=== PATIENT | female | born 1970 | race Caucasian/White ===

== ENCOUNTER → 2018-03-14 | Outpatient (CLI) | payer OTHER ==
[~2018-03-14] MED LIST: ACET500 PO; CIPRSO OS; CYCL10 PO; HYDACE5 PO; IBUP600 PO; VARE1 PO
== END ==
LOC: LAB 10:20 → LAB SHORT 10:20
DX: R30.0 Dysuria (principal)
CPT/HCPCS: 87077; 87086; 87186

== ENCOUNTER 2018-03-16 07:07 | Emergency (ER) | payer OTHER ==
[~2018-03-16] VITALS: Ht 165.1 cm; Wt 71.7 kg
[2018-03-16 07:45] LABS: BASOPHILS ABSOLUTE AUTO 0.04 K/mm3 (0.00-0.23); BASOPHILS PERCENT AUTO 1 % (0-2); EOSINOPHILS ABSOLUTE AUTO 0.24 K/mm3 (0.00-0.68); EOSINOPHILS PERCENT AUTO 4 % (0-6); Hematocrit 37.5 % (33.0-51.0); Hemoglobin 12.8 g/dL (11.5-16.0); IMMATURE GRAN ABSOLUTE AUTO 0.01 K/mm3 (0.00-0.10); IMMATURE GRAN PERCENT AUTO 0 % (0-1); LYMPHOCYTES ABSOLUTE AUTO 1.77 K/mm3 (0.84-5.20); LYMPHOCYTES PERCENT AUTO 31 % (21-46); MONOCYTES ABSOLUTE AUTO 0.38 K/mm3 (0.16-1.47); MONOCYTES PERCENT AUTO 7 % (4-13); Mean Corpuscular HGB 34.2 pg (26.0-34.0); Mean Corpuscular HGB Conc 34.1 g/dL (31.5-36.5); Mean Corpuscular Volume 100 fL (80-100); Mean Platelet Volume 10.2 fL (9.1-12.4); NEUTROPHILS ABSOLUTE AUTO 3.33 K/mm3 (1.96-9.15); NEUTROPHILS PERCENT AUTO 58 % (41-73); Platelet Count 264 K/mm3 (150-400); RDW Coefficient Variation 11.7 % (11.7-14.2); RDW Standard Deviation 42.5 fL (35.1-46.3); Red Blood Cell Count 3.74 M/mm3 (3.80-5.20); White Blood Cell Count 5.77 K/mm3 (4.00-11.30)
[2018-03-16 08:03] LABS: Alanine Aminotransfer (ALT/SGP 22 U/L (12-78); Albumin, Blood 3.9 g/dL (3.4-5.0); Albumin/Globulin Ratio 1.1 (0.8-1.8); Alk Phos 110 U/L (50-136); Anion Gap 7 mmol/L (6-16); Aspartate Aminotrans (AST/SGOT 20 U/L (12-37); Bilirubin, Total 0.4 mg/dL (0.1-1.0); Blood Urea Nitrogen 6 mg/dL (8-24); Bun/Creatinine Ratio 10.3 (12.0-20.0); CO2, Blood 26 mmol/L (21-32); Calcium, Blood 8.7 mg/dL (8.5-10.1); Chloride, Blood 108 mmol/L (98-108); Creatinine, Blood 0.58 mg/dL (0.40-1.00); Free Thyroxine 0.81 ng/dL (0.70-1.60); Globulin, Blood 3.6 g/dL (2.2-4.0); Glomerular Filtration Rate >60 (60-); Glucose, Blood 108 mg/dL (70-99); Sodium, Blood 141 mmol/L (136-145); Total Protein, Blood 7.5 g/dL (6.4-8.2)
== END 2018-03-16 08:30 | disposition home or self-care (01) ==
LOC: ER 07:07
PROVIDERS: Emergency Medicine
DX: R00.2 Palpitations (principal); N39.0 Urinary tract infection, site not specified; Z79.899 Other long term (current) drug therapy; F17.200 Nicotine dependence, unspecified, uncomplicated
CPT/HCPCS: 36415; 80053; 81000; 84439; 84443; 85025; 93005; 93010; 96360; 99285-25; J7030

== ENCOUNTER → 2018-09-29 | Outpatient (CLI) | payer OTHER ==
[2018-09-29 12:11] LABS: BASOPHILS ABSOLUTE AUTO 0.02 K/mm3 (0.00-0.23); BASOPHILS PERCENT AUTO 0 % (0-2); EOSINOPHILS ABSOLUTE AUTO 0.13 K/mm3 (0.00-0.68); EOSINOPHILS PERCENT AUTO 2 % (0-6); Hematocrit 42.5 % (33.0-51.0); Hemoglobin 14.9 g/dL (11.5-16.0); IMMATURE GRAN ABSOLUTE AUTO 0.02 K/mm3 (0.00-0.10); IMMATURE GRAN PERCENT AUTO 0 % (0-1); LYMPHOCYTES PERCENT AUTO 28 % (21-46); MONOCYTES ABSOLUTE AUTO 0.46 K/mm3 (0.16-1.47); MONOCYTES PERCENT AUTO 8 % (4-13); Mean Corpuscular HGB 33.3 pg (26.0-34.0); Mean Corpuscular HGB Conc 35.1 g/dL (31.5-36.5); Mean Corpuscular Volume 95 fL (80-100); Mean Platelet Volume 10.7 fL (9.1-12.4); NEUTROPHILS PERCENT AUTO 60 % (41-73); Platelet Count 229 K/mm3 (150-400); RDW Coefficient Variation 11.3 % (11.7-14.2); RDW Standard Deviation 39.4 fL (35.1-46.3); Red Blood Cell Count 4.47 M/mm3 (3.80-5.20); White Blood Cell Count 5.63 K/mm3 (4.00-11.30)
[2018-09-29 12:17] LABS: Source, Urine Clean Catch
[2018-09-29 12:31] LABS: Bacteria Not Seen /hpf; Red Blood Cells, Urine Not Seen /hpf (0-2); Squamous Epithelial Cells Few /hpf (Few); White Blood Cells, Urine Not Seen /hpf (0-5)
[2018-09-29 12:56] LABS: Alanine Aminotransfer (ALT/SGP 24 U/L (12-78); Albumin, Blood 4.1 g/dL (3.4-5.0); Albumin/Globulin Ratio 1.1 (0.8-1.8); Alk Phos 86 U/L (40-126); Anion Gap 10 mmol/L (6-16); Aspartate Aminotrans (AST/SGOT 18 U/L (12-37); Bilirubin, Total 1.3 mg/dL (0.1-1.0); Blood Urea Nitrogen 9 mg/dL (8-24); Bun/Creatinine Ratio 13.6 (12.0-20.0); CO2, Blood 27 mmol/L (21-32); Calcium, Blood 9.7 mg/dL (8.5-10.1); Chloride, Blood 103 mmol/L (98-108); Creatinine, Blood 0.66 mg/dL (0.40-1.00); Globulin, Blood 3.7 g/dL (2.2-4.0); Glomerular Filtration Rate >60 (60-); Glucose, Blood 104 mg/dL (70-99); Potassium, Blood 4.5 mmol/L (3.5-5.5); Sodium, Blood 140 mmol/L (136-145); Total Protein, Blood 7.8 g/dL (6.4-8.2)
== END | disposition home or self-care (01) ==
LOC: LAB EV 12:07 → LAB SHORT 12:07
PROVIDERS: Physician Assistant
DX: R35.0 Frequency of micturition (principal)
CPT/HCPCS: 80053; 81015; 85025

== ENCOUNTER → 2019-02-12 | Outpatient (CLI) | payer OTHER ==
[2019-02-12 16:08] LABS: BASOPHILS ABSOLUTE AUTO 0.03 K/mm3 (0.00-0.23); BASOPHILS PERCENT AUTO 1 % (0-2); EOSINOPHILS ABSOLUTE AUTO 0.14 K/mm3 (0.00-0.68); EOSINOPHILS PERCENT AUTO 3 % (0-6); Hematocrit 36.2 % (33.0-51.0); Hemoglobin 12.7 g/dL (11.5-16.0); IMMATURE GRAN ABSOLUTE AUTO 0.01 K/mm3 (0.00-0.10); IMMATURE GRAN PERCENT AUTO 0 % (0-1); LYMPHOCYTES PERCENT AUTO 31 % (21-46); MONOCYTES ABSOLUTE AUTO 0.38 K/mm3 (0.16-1.47); MONOCYTES PERCENT AUTO 8 % (4-13); Mean Corpuscular HGB 33.4 pg (26.0-34.0); Mean Corpuscular HGB Conc 35.1 g/dL (31.5-36.5); Mean Corpuscular Volume 95 fL (80-100); Mean Platelet Volume 10.4 fL (9.1-12.4); NEUTROPHILS ABSOLUTE AUTO 2.74 K/mm3 (1.96-9.15); NEUTROPHILS PERCENT AUTO 57 % (41-73); Platelet Count 242 K/mm3 (150-400); RDW Coefficient Variation 11.2 % (11.7-14.2); RDW Standard Deviation 38.8 fL (35.1-46.3)
== END | disposition home or self-care (01) ==
LOC: LAB SHORT 16:04 → LAB EV 16:04
PROVIDERS: Physician Assistant
DX: N92.0 Excessive and frequent menstruation with regular cycle (principal)
CPT/HCPCS: 85025

== ENCOUNTER → 2019-03-21 | Outpatient (CLI) | payer OTHER ==
[2019-03-22 09:39] LABS: Candida species (DNA Probe) Negative (NEGATIVE); G. vaginalis (DNA Probe) Positive (NEGATIVE); T. vaginalis (DNA Probe) Negative (NEGATIVE)
[2019-03-23 17:06] LABS: HPV 16 Negative (Negative); HPV 18 Negative (Negative); HPV OTHER HR TYPES Negative (Negative)
== END | disposition home or self-care (01) ==
LOC: LAB 16:08 → LAB SHORT 16:08
PROVIDERS: Obstetrics & Gynecology
DX: Z01.419 Encounter for gynecological examination (general) (routine) without abnormal findings (principal); N76.0 Acute vaginitis
CPT/HCPCS: 87480; 87510; 87624; 87660; G0123

== ENCOUNTER → 2019-09-22 | Outpatient (CLI) | payer OTHER | END | disposition home or self-care (01) | LOC: LAB SHORT 12:48 → LAB EV 12:48 | DX: R30.0 Dysuria (principal); R30.9 Painful micturition, unspecified | CPT/HCPCS: 87086 ==

== ENCOUNTER → 2020-09-12 | Outpatient (CLI) | payer OTHER ==
[2020-09-12 14:28] LABS: BASOPHILS ABSOLUTE AUTO 0.03 K/mm3 (0.00-0.23); BASOPHILS PERCENT AUTO 1 % (0-2); EOSINOPHILS ABSOLUTE AUTO 0.13 K/mm3 (0.00-0.68); EOSINOPHILS PERCENT AUTO 3 % (0-6); Hematocrit 42.8 % (33.0-51.0); Hemoglobin 14.7 g/dL (11.5-16.0); IMMATURE GRAN ABSOLUTE AUTO 0.01 K/mm3 (0.00-0.10); IMMATURE GRAN PERCENT AUTO 0 % (0-1); LYMPHOCYTES ABSOLUTE AUTO 1.55 K/mm3 (0.84-5.20); LYMPHOCYTES PERCENT AUTO 30 % (21-46); MONOCYTES ABSOLUTE AUTO 0.33 K/mm3 (0.16-1.47); MONOCYTES PERCENT AUTO 6 % (4-13); Mean Corpuscular HGB 33.5 pg (26.0-34.0); Mean Corpuscular HGB Conc 34.3 g/dL (31.5-36.5); Mean Corpuscular Volume 98 fL (80-100); Mean Platelet Volume 10.3 fL (9.1-12.4); NEUTROPHILS PERCENT AUTO 60 % (41-73); Platelet Count 226 K/mm3 (150-400); RDW Coefficient Variation 11.5 % (11.7-14.2); RDW Standard Deviation 41.3 fL (35.1-46.3); Red Blood Cell Count 4.39 M/mm3 (3.80-5.20); White Blood Cell Count 5.15 K/mm3 (4.00-11.30)
[2020-09-12 14:45] LABS: Alanine Aminotransfer (ALT/SGP 34 U/L (12-78); Albumin, Blood 4.4 g/dL (3.4-5.0); Albumin/Globulin Ratio 1.1 (0.8-1.8); Alk Phos 90 U/L (40-126); Anion Gap 8 mmol/L (6-16); Aspartate Aminotrans (AST/SGOT 26 U/L (12-37); Bilirubin, Total 1.4 mg/dL (0.1-1.0); Blood Urea Nitrogen 10 mg/dL (8-24); CO2, Blood 28 mmol/L (21-32); Calcium, Blood 9.7 mg/dL (8.5-10.1); Chloride, Blood 103 mmol/L (98-108); Creatinine, Blood 0.77 mg/dL (0.40-1.00); Globulin, Blood 3.9 g/dL (2.2-4.0); Glomerular Filtration Rate >60 (60-); Glucose, Blood 108 mg/dL (70-99); Potassium, Blood 4.3 mmol/L (3.5-5.5); Sodium, Blood 139 mmol/L (136-145); Total Protein, Blood 8.3 g/dL (6.4-8.2)
== END ==
LOC: LAB SHORT 14:20 → LAB EV 14:20
PROVIDERS: Chiropractor
DX: R10.9 Unspecified abdominal pain (principal)
CPT/HCPCS: 80053; 83690; 85025

== ENCOUNTER → 2021-03-12 | Outpatient (CLI) | payer OTHER | END | disposition home or self-care (01) | LOC: LAB 16:48 → LAB SHORT 16:48 | DX: R30.9 Painful micturition, unspecified (principal) | CPT/HCPCS: 87086 ==

== ENCOUNTER → 2022-03-19 | Outpatient (CLI) | payer OTHER | END | disposition home or self-care (01) | LOC: LAB 10:30 → LAB SHORT 10:30 | DX: N39.0 Urinary tract infection, site not specified (principal) | CPT/HCPCS: 87086 ==

== ENCOUNTER → 2022-12-14 | Outpatient (CLI) | payer OTHER | END | disposition home or self-care (01) | LOC: LAB 12:04 → LAB SHORT 12:04 | DX: R39.15 Urgency of urination (principal) | CPT/HCPCS: 87086 ==